=== PATIENT | female | born 1960 | race African-American/Black ===

== ENCOUNTER 2018-09-12 14:43 | Inpatient (IN) | payer OTHER ==
[2018-09-12 16:01] VITALS: BMI 30.4
--- NOTE | 2018-09-12 17:11 | HP ---
CIWA Score - Admission Criteria [facility] Guidelines: Admission for Medically Managed Detox: Requires at least one of the followin. CIWA greater than 12 2. Seizures within the past 24 hours 3. Delirium tremens within the past 24 hours 4. Hallucinations within the past 24 hours 5. Acute intervention needed for co occurring medical disorder 6. Acute intervention needed for co occurring psychiatric disorder 7. Severe withdrawal that cannot be handled at a lower level of care (continued vomiting, continued diarrhea, abnormal vital signs) requiring intravenous medication and/or fluids 8. Admission ROS [facility] Chief Complaint: rehab from THC, cocaine and PCP. 58 yo old with asthma, [facility]. Was in [facility] rehab, left in 05/2018 and restarted with cocaine, weed and PCP. Pt states she has a case pending for drugs in her system and d/w with her counselor who suggested she comes here to get off of cocaine before court case. Uses cocaine 1-2 joints/day, pt states last use 3 days ago. Uses once a week. Smokes a small bit of THC- once a week Does not smoke cigarettes MH meds: abilify 15 mg for schizophrenia, and benadryl, DUR- shows no prescribed controlled substances Allergies/Adverse Reactions: Allergies Allergy/AdvReac Type Severity Reaction Status Date / Time chocolate flavor Allergy Severe Rash Verified 09/12/18 16:55 Exam Limitations: No Limitations - Ebola screening Have you traveled outside of the country in the last 21 days: No Have you had contact with anyone from an Ebola affected area: No Have you been sick,other than usual withdrawal symptoms: No Do you have a fever: No - Review of Systems Constitutional: No Symptoms Reported EENT: reports: No Symptoms Reported Respiratory: reports: Shortness of Breath (when she exerts) Cardiac: reports: No Symptoms Reported, Other (h/o heart murmur) GI: reports: No Symptoms Reported : reports: No Symptoms Reported Musculoskeletal: reports: No Symptoms Reported Integumentary: reports: No Symptoms Reported Neuro: reports: No Symptoms reported Endocrine: reports: No Symptoms Reported Hematology: reports: No Symptoms Reported Psychiatric: reports: No Sypmtoms Reported Other Systems: Reviewed and Negative Patient History - Patient Medical History Hx Anemia: No Hx Asthma: Yes Hx Chronic Obstructive Pulmonary Disease (COPD): No Hx Cancer: No Hx Cardiac Disorders: No Hx Congestive Heart Failure: No Hx Hypertension: No Hx Hypercholesterolemia: No Hx Pacemaker: No HX Cerebrovascular Accident: No Hx Seizures: No Hx Dementia: No Hx Diabetes: No Hx Gastrointestinal Disorders: No Hx Liver Disease: No Hx Genitourinary Disorders: No Hx Sexually Transmitted Disorders: No Hx Renal Disease (ESRD): No Hx Thyroid Disease: No Hx Human Immunodeficiency Virus (HIV): No Hx Hepatitis C: No Hx Depression: No Hx Suicide Attempt: No Hx Bipolar Disorder: No Hx Schizophrenia: No - Patient Surgical History Past Surgical History: No - Smoking Cessation Smoking history: Former smoker Have you smoked in the past 12 months: No Hx Chewing Tobacco Use: No Initiated information on smoking cessation: Yes 'Breaking Loose' booklet given: 09/13/18 - Substances Abused Crack Route: Smoking Frequency: 1-2 times per week Amount used: 1-2 JOINTS Age of first use: 37 Date of Last Use: 09/09/18 Marijuana/Hashish Route: Smoking Frequency: 1-2 times per week Amount used: 1 JOINT Age of first use: 37 Date of Last Use: 09/06/18 Family Disease History - Family Disease History Family History: Denies (pt denies family med problems) Admission Physical Exam [facility] - Vital Signs Vital Signs: Vital Signs - 24 hr 09/12/18 15:59 Temperature 97.1 F L Pulse Rate 63 Respiratory 20 Rate Blood Pressure 116/76 - Physical General Appearance: Yes: Within Normal Limits HEENTM: Yes: Within Normal Limits Respiratory: Yes: Within Normal Limits Neck: Yes: Within Normal Limits Breast: Yes: Breast Exam Deferred Cardiology: Yes: Within Normal Limits Abdominal: Yes: Within Normal Limits Genitourinary: Yes: Within Normal Limits Back: Yes: Within Normal Limits Musculoskeletal: Yes: Within Normal Limits Extremities: Yes: Within Normal Limits Neurological: Yes: Within Normal Limits Integumentary: Yes: Within Normal Limits Lymphatic: Yes: Within Normal Limits Cleared for Admission S - Detox or Rehab [facility] Level of Care: Medically Managed [facility] Breath Alcohol Content Breath Alcohol Content: 0 Urine Pregancy Test - Result Urine Test Results: Negative- NO Line Present Urine Drug Screen - Results Drug Screen Negative: No Urine Drug Screen Results: [facility]-Cocaine Inpatient Rehab Admission - Initial Determination Are CD services needed?: Yes Free of communicable disease: Yes Not in need of hospitalization: Yes - Rehab Admission Criteria Previous failed treatment: Yes Poor recovery environment: Yes Comorbidities: Yes Lacks judgement: No Patient is meeting Inpatient Rehab admission criteria:: Yes (pt using cocaine)
[2018-09-12] MEDS ORDERED: hydrOXYzine PAMOATE 50 MG CAPSULE (FP) PO PRN (17:25)
[2018-09-12] MEDS ORDERED: MAG HYDROX/AL HYDROX/SIMETH 30 ML UNIT-DOSE CUP PO PRN (17:25)
[2018-09-12] MEDS ORDERED: IBUPROFEN 400 MG TABLET (FP) PO PRN (17:25)
[2018-09-12] MEDS ORDERED: MAGNESIUM HYDROX 2400MG/30ML ORAL SUSPENSION 30 ML CUP PO PRN (17:25)
[2018-09-12] MEDS ORDERED: LOPERAMIDE HCL 2 MG CAPSULE PO PRN (17:25)
[2018-09-12] MEDS ORDERED: MENTHOL/PHENOL 1 EACH UD MM PRN (17:25)
[2018-09-12] MEDS ORDERED: P-EPHED 60MG/TRIPROLIDI 2.5MG TABLET PO PRN (17:25)
[2018-09-12] MEDS ORDERED: MAGNESIUM CITRATE 300 ML BOTTLE PO PRN (17:25)
[2018-09-12] MEDS ORDERED: ALBUTEROL SO4 8 GM HFA INHALER IH PRN (17:27)
[2018-09-12] MEDS: diphenhydrAMINE HCL 50 MG CAPSULE PO SCH (21:01)
[2018-09-12] MEDS: THIAMINE HCL 100 MG TABLET (FP) PO SCH (21:01)
[2018-09-12] MEDS ORDERED: MELATONIN 5 MG TABLETS PO PRN (22:00)
[2018-09-12 23:52] LABS: URINE APPEARANCE CLOUDY; URINE BILIRUBIN NEGATIVE (<2.0 mg/dL); URINE COLOR YELLOW; URINE GLUCOSE (UA) NEGATIVE (NEGATIVE); URINE KETONE NEGATIVE (NEGATIVE); URINE LEUK ESTERASE 2+ (NEGATIVE); URINE NITRITE NEGATIVE (NEGATIVE); URINE PROTEIN NEGATIVE (NEGATIVE); URINE UROBILINOGEN NEGATIVE mg/dL (0.2-1.0)
[2018-09-12 23:56] LABS: EPI CELLS MODERATE /HPF (FEW); URINE BACTERIA RARE /hpf (NONE SEEN); URINE MUCUS FEW
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
[2018-09-13 10:22] LABS: HEMATOCRIT 38.8 % (32.4-45.2); HEMOGLOBIN 12.5 GM/dL (10.7-15.3); MCH 30.7 pg (25.7-33.7); MCHC 32.2 g/dl (32.0-36.0); MEAN CELL VOLUME 95.2 fl (80-96); MEAN PLT VOLUME 8.6 fl (7.5-11.1); PLATELET COUNT 223 K/MM3 (134-434); RBC 4.08 M/mm3 (3.60-5.2); WHITE BLOOD COUNT 5.5 K/mm3 (4.0-10.0)
[2018-09-13] MEDS: ARIPiprazole 15 MG TABLET PO SCH (10:31)
[2018-09-13] MEDS: PRENATAL VITAMINS W/ FOLIC ACID TABLET (FP) PO SCH (10:32)
[2018-09-13 10:35] LABS: ALK PHOS 79 U/L (45-117); ANION GAP 6 MMOL/L (8-16); BILIRUBIN,TOTAL 0.5 mg/dL (0.2-1); BLOOD UREA NITROGEN 20 mg/dL (7-18); CHLORIDE 110 mmol/L (98-107); CO2 26 mmol/L (21-32); CREATININE 0.9 mg/dL (0.55-1.3); GLUCOSE,RANDOM 79 mg/dL (74-106); POTASSIUM 4.5 mmol/L (3.5-5.1); SGOT/AST 11 U/L (15-37); SGPT/ALT 15 U/L (13-61); SODIUM 142 mmol/L (136-145)
[2018-09-13] MEDS: THIAMINE HCL 100 MG TABLET (FP) PO SCH (22:13)
[2018-09-13] MEDS: diphenhydrAMINE HCL 50 MG CAPSULE PO SCH (22:13)
[2018-09-14] MEDS: ARIPiprazole 15 MG TABLET PO SCH (10:00)
[2018-09-14] MEDS: PRENATAL VITAMINS W/ FOLIC ACID TABLET (FP) PO SCH (10:01)
[2018-09-14] MEDS: THIAMINE HCL 100 MG TABLET (FP) PO SCH (21:16)
[2018-09-14] MEDS: diphenhydrAMINE HCL 50 MG CAPSULE PO SCH (21:16)
[2018-09-15] MEDS: PRENATAL VITAMINS W/ FOLIC ACID TABLET (FP) PO SCH (09:48)
[2018-09-15] MEDS: ARIPiprazole 15 MG TABLET PO SCH (09:48)
[2018-09-15] MEDS: diphenhydrAMINE HCL 50 MG CAPSULE PO SCH (21:09)
[2018-09-15] MEDS: THIAMINE HCL 100 MG TABLET (FP) PO SCH (21:09)
[2018-09-16] MEDS: PRENATAL VITAMINS W/ FOLIC ACID TABLET (FP) PO SCH (10:00)
[2018-09-16] MEDS: ARIPiprazole 15 MG TABLET PO SCH (10:00)
[2018-09-16] MEDS: THIAMINE HCL 100 MG TABLET (FP) PO SCH (21:53)
[2018-09-16] MEDS: diphenhydrAMINE HCL 50 MG CAPSULE PO SCH (21:53)
[2018-09-17] MEDS: guaiFENesin/D-METHORPHAN HB 10 ML UNIT-DOSE CUPS PO PRN (06:43)
[2018-09-17] MEDS: ACETAMINOPHEN 325 MG TABLET (FP) PO PRN (06:43)
[2018-09-17] MEDS: ARIPiprazole 15 MG TABLET PO SCH (09:54)
[2018-09-17] MEDS: PRENATAL VITAMINS W/ FOLIC ACID TABLET (FP) PO SCH (09:54)
[2018-09-17] MEDS: THIAMINE HCL 100 MG TABLET (FP) PO SCH (21:38)
[2018-09-17] MEDS: diphenhydrAMINE HCL 50 MG CAPSULE PO SCH (21:38)
[2018-09-18] MEDS: guaiFENesin/D-METHORPHAN HB 10 ML UNIT-DOSE CUPS PO PRN ×2 (06:20→21:40)
[2018-09-18] MEDS: ACETAMINOPHEN 325 MG TABLET (FP) PO PRN ×2 (06:20→21:40)
[2018-09-18] MEDS: PRENATAL VITAMINS W/ FOLIC ACID TABLET (FP) PO SCH (09:43)
[2018-09-18] MEDS: ARIPiprazole 15 MG TABLET PO SCH (09:43)
[2018-09-18] MEDS: THIAMINE HCL 100 MG TABLET (FP) PO SCH (21:39)
[2018-09-18] MEDS: diphenhydrAMINE HCL 50 MG CAPSULE PO SCH (21:39)
[2018-09-19] MEDS: PRENATAL VITAMINS W/ FOLIC ACID TABLET (FP) PO SCH (09:32)
[2018-09-19] MEDS: ARIPiprazole 15 MG TABLET PO SCH (09:33)
[2018-09-19] MEDS: THIAMINE HCL 100 MG TABLET (FP) PO SCH (21:39)
[2018-09-19] MEDS: diphenhydrAMINE HCL 50 MG CAPSULE PO SCH (21:39)
[2018-09-19] MEDS: guaiFENesin/D-METHORPHAN HB 10 ML UNIT-DOSE CUPS PO PRN (21:40)
[2018-09-20] MEDS: PRENATAL VITAMINS W/ FOLIC ACID TABLET (FP) PO SCH (10:02)
[2018-09-20] MEDS: ARIPiprazole 15 MG TABLET PO SCH (10:02)
[2018-09-20] MEDS: guaiFENesin/D-METHORPHAN HB 10 ML UNIT-DOSE CUPS PO PRN ×2 (10:04→21:33)
[2018-09-20] MEDS: THIAMINE HCL 100 MG TABLET (FP) PO SCH (21:31)
[2018-09-20] MEDS: diphenhydrAMINE HCL 50 MG CAPSULE PO SCH (21:31)
[2018-09-20] MEDS: ACETAMINOPHEN 325 MG TABLET (FP) PO PRN (21:33)
[2018-09-21] MEDS: ARIPiprazole 15 MG TABLET PO SCH (09:55)
[2018-09-21] MEDS: PRENATAL VITAMINS W/ FOLIC ACID TABLET (FP) PO SCH (09:55)
[2018-09-21] MEDS: guaiFENesin/D-METHORPHAN HB 10 ML UNIT-DOSE CUPS PO PRN ×2 (09:56→21:37)
[2018-09-21] MEDS: THIAMINE HCL 100 MG TABLET (FP) PO SCH (21:36)
[2018-09-21] MEDS: ACETAMINOPHEN 325 MG TABLET (FP) PO PRN (21:37)
[2018-09-21] MEDS: diphenhydrAMINE HCL 50 MG CAPSULE PO SCH (21:37)
[2018-09-22] MEDS: ARIPiprazole 15 MG TABLET PO SCH (09:57)
[2018-09-22] MEDS: PRENATAL VITAMINS W/ FOLIC ACID TABLET (FP) PO SCH (09:57)
[2018-09-22] MEDS: guaiFENesin/D-METHORPHAN HB 10 ML UNIT-DOSE CUPS PO PRN ×2 (09:58→21:43)
[2018-09-22] MEDS: diphenhydrAMINE HCL 50 MG CAPSULE PO SCH (21:42)
[2018-09-22] MEDS: THIAMINE HCL 100 MG TABLET (FP) PO SCH (21:42)
[2018-09-23] MEDS: ARIPiprazole 15 MG TABLET PO SCH (09:58)
[2018-09-23] MEDS: PRENATAL VITAMINS W/ FOLIC ACID TABLET (FP) PO SCH (09:58)
[2018-09-23] MEDS: diphenhydrAMINE HCL 50 MG CAPSULE PO SCH (22:48)
[2018-09-23] MEDS: THIAMINE HCL 100 MG TABLET (FP) PO SCH (22:48)
[2018-09-24] MEDS: PRENATAL VITAMINS W/ FOLIC ACID TABLET (FP) PO SCH (09:49)
[2018-09-24] MEDS: ARIPiprazole 15 MG TABLET PO SCH (09:49)
[2018-09-24] MEDS: guaiFENesin/D-METHORPHAN HB 10 ML UNIT-DOSE CUPS PO PRN ×2 (09:50→21:16)
[2018-09-24] MEDS ORDERED: PT OWN MED DRAWER 7, Y5N ONE (19:39)
[2018-09-24] MEDS: diphenhydrAMINE HCL 50 MG CAPSULE PO SCH (21:16)
[2018-09-24] MEDS: THIAMINE HCL 100 MG TABLET (FP) PO SCH (21:16)
[2018-09-25] MEDS: ARIPiprazole 15 MG TABLET PO SCH (09:40)
[2018-09-25] MEDS: PRENATAL VITAMINS W/ FOLIC ACID TABLET (FP) PO SCH (09:40)
[2018-09-25] MEDS: guaiFENesin/D-METHORPHAN HB 10 ML UNIT-DOSE CUPS PO PRN (09:40)
--- NOTE | 2018-09-25 12:36 | PN ---
Psychiatric Progress Note Vital Signs: Vital Signs Period Temp Pulse Resp BP Sys/Frank Pulse Ox Last 24 Hr 97.9 F 60 18-18 116/80 Date of Session: 09/25/18 Chief Complaint:: Discharge visit HPI: Patient addressed Alcohol dependence comorbid with Schizoaffective disorder. Current Medications: Active Medications Generic Name Dose Route Start Last Admin Trade Name Freq PRN Reason Stop Dose Admin Acetaminophen 650 mg 09/12/18 17:25 09/21/18 21:37 Tylenol - PO 650 mg Q4H PRN Administration FEVER Al Hydroxide/Mg Hydroxide 30 ml 09/12/18 17:25 Mylanta Oral Suspension - PO Q6H PRN DYSPEPSIA Albuterol Sulfate 2 puff 09/12/18 17:27 Ventolin Hfa Inhaler - IH Q4H PRN ASTHMA Aripiprazole 15 mg 09/13/18 10:00 09/25/18 09:40 Abilify PO 15 mg DAILY [facility] Administration Diphenhydramine HCl 50 mg 09/12/18 22:00 09/24/18 21:16 Benadryl - PO 50 mg HS [facility] Administration Eucalyptus/Menthol/Phenol/Sorbitol 1 each 09/12/18 17:25 Cepastat Lozenge - MM Q4H PRN SORE THROAT Guaifenesin 10 ml 09/12/18 17:25 09/25/18 09:40 Robitussin Dm - PO 10 ml Q6H PRN Administration COUGH Hydroxyzine Pamoate 50 mg 09/12/18 17:25 Vistaril - PO Q4H PRN AGITATION Ibuprofen 400 mg 09/12/18 17:25 09/19/18 21:39 Motrin - PO 400 mg Q6H PRN Administration Pain level 4-6 Loperamide HCl 4 mg 09/12/18 17:25 Imodium - PO Q6H PRN DIARRHEA Magnesium Citrate 300 ml 09/12/18 17:25 Citroma - PO Q48H PRN CONSTIPATION Magnesium Hydroxide 30 ml 09/12/18 17:25 Milk Of Magnesia - PO DAILY PRN CONSTIPATION Melatonin 5 mg 09/12/18 22:00 Melatonin PO HS PRN INSOMNIA Multivit/Folic Acid/Iron 1 tab 09/13/18 10:00 09/25/18 09:40 Vitamins (Sjr) - PO 1 tab DAILY [facility] Administration Pseudoephedrine/Triprolidine 1 combo 09/12/18 17:25 09/18/18 06:22 Actifed - PO 1 combo TID PRN Administration NASAL CONGESTION Thiamine HCl 100 mg 09/12/18 22:00 09/24/18 21:16 Vitamin B1 - PO 100 mg HS [facility] Administration Current Side Effect: No Lab tests ordered: No Lab tests reviewed: Yes Provider note:: Patient will complete this program tomorrow 09/26/18.She has met her treatment goals and will continue to address her issues on outpatient basis .Patient reports finding that Abilify 15 mg po daily help to reduce mood instability,anxiety.Script for 30 supply provided. Supportive therapy provided focusing on relapse prevention,coping skills,support utilization has been discussed with ther patient as well as other resourses to maintain recovery. Patient is stable for discharge tomorrow 09/26/18. Mental Status Exam - Mental Status Exam Alert and Oriented to: Time, Place, Person Cognitive Function: Grossly Intact Patient Appearance: Well Groomed Mood: Euthymic Affect: Normal Range Patient Behavior: Cooperative Speech Pattern: Clear Voice Loudness: Normal Thought Process: Goal Oriented Thought Disorder: Not Present Hallucinations: Denies Suicidal Ideation: Denies Homicidal Ideation: Denies Insight/Judgement: Fair Sleep: Fair Appetite: Fair Muscle strength/Tone: Normal Gait/Station: Normal Psychiatric Treatment Plan - Problem List (1) Cannabis dependence Current Visit: Yes (2) Cocaine dependence Current Visit: Yes (3) Bronchial asthma Current Visit: Yes (4) Schizoaffective disorder Current Visit: Yes
[2018-09-25] MEDS: diphenhydrAMINE HCL 50 MG CAPSULE PO SCH (21:32)
[2018-09-25] MEDS: THIAMINE HCL 100 MG TABLET (FP) PO SCH (21:33)
[2018-09-26] MEDS: guaiFENesin/D-METHORPHAN HB 10 ML UNIT-DOSE CUPS PO PRN (06:28)
[2018-09-26 06:47] VITALS: BP 111/73; PULSE 61; TEMP 97.8
--- NOTE | 2018-09-26 10:26 | PN ---
[facility] Progress Note Note: PATIENT COMPLETED REHAB TODAY WITHOUT ADVERSE EVENT. PATIENT ALERT AND ORIENTED X 3, MEDICALLY STABLE AND DENIES SI/HI. PATIENT TO CONTINUE OUTPATIENT TREATMENT WITH [facility]. PATIENT ENCOURAGED TO CONTINUE WITH TREATMENT TO PREVENT RELAPSE AND TO FOLLOW UP WITH PCP WITHIN ONE WEEK OF DISCHARGE. PATIENT LEFT UNIT IN STABLE CONDITION. Vital Signs Temperature 97.8 F 09/26/18 06:46 Pulse Rate 61 09/26/18 06:46 Respiratory Rate 18 09/26/18 06:46 Blood Pressure 111/73 09/26/18 06:46 O2 Sat by Pulse Oximetry (%)
== END 2018-09-26 08:40 | disposition home or self-care (01) | DRG 772 ==
LOC: YASAS 14:43 → Y3E 17:27
PROVIDERS: ADMIT Psychiatry & Neurology Psychiatry; ATTEND Psychiatry & Neurology Psychiatry
PROC: HZ42ZZZ Group Counseling for Substance Abuse Treatment, Cognitive-Behavioral (ICD-10-PCS; principal; 2018-09-12)
DX: F14.20 Cocaine dependence, uncomplicated (principal); F12.20 Cannabis dependence, uncomplicated; F25.9 Schizoaffective disorder, unspecified; F19.24 Other psychoactive substance dependence with psychoactive substance-induced mood disorder; J45.909 Unspecified asthma, uncomplicated
CPT/HCPCS: 36415; 80053; 81003; 81015; 85027; 86593